=== PATIENT | male | born 1990 | race Caucasian/White ===

== ENCOUNTER 2019-02-18 22:52 | Emergency (ER) | payer OTHER ==
[2019-02-18 23:06] VITALS: TEMP 98.6
[2019-02-18] MEDS ORDERED: KETOROLAC 30 MG/ML 1 ML VIAL IVP STA (23:16)
[2019-02-18] MEDS ORDERED: methylPREDNISolone SOD SUCCI 125 MG/2 ML VIAL IV STA (23:16)
--- NOTE | 2019-02-18 23:40 | ED ---
General Adult HPI - General Source: patient, family Mode of arrival: wheelchair Limitations: physical limitation <Sheri Saul - Last Filed: 02/19/19 01:39> <Afia Booth - Last Filed: 02/19/19 01:54> - General Chief complaint: Extremity Injury, Lower Stated complaint: Lt foot pain/injury Time Seen by Provider: 02/18/19 23:09 - History of Present Illness Initial comments: 28-year-old male patient presents to the emergency department for evaluation of left foot pain. Patient states the pain started when he woke this morning has progressively worsened throughout the day. Patient states he is now unable to bear weight or walk due to the pain. Patient denies any swelling or redness. States she does have a history of gout and is concerned he may be having a flareup. He denies any known injury. Patient states he did return today from a road trip from [place]. Denies any swelling, calf pain, or calf tenderness. Denies any history of DVT. Denies any chest pain or shortness of breath. De nies any fever or chills. Denies any numbness or tingling to the foot. Patient denies any recent rash, abdominal pain, nausea, vomiting, diarrhea, constipation, back pain, numbness, tingling, dizziness, weakness, hematuria, dysuria, urinary urgency, urinary frequency, headache, visual changes, or any other complaints. (Sheri Saul) - Related Data Home Medications Medication Instructions Recorded Confirmed Atorvastatin [Lipitor] 20 mg PO DAILY 07/24/18 07/27/18 Cholecalciferol [Vitamin D3] 1,000 unit PO DAILY 07/24/18 07/27/18 Fenofibrate 120 mg PO DAILY 07/24/18 07/27/18 Gemfibrozil [Lopid] 600 mg PO DAILY 07/24/18 07/27/18 [place]-3 Fatty Acids/Fish Oil [Fish 1 each PO DAILY 07/24/18 07/27/18 Oil 1,000 mg Softgel] Previous Rx's Medication Instructions Recorded Indomethacin [Indocin] 50 mg PO TID #15 capsule 02/19/19 Allergies Allergy/AdvReac Type Severity Reaction Status Date / Time No Known Allergies Allergy Verified 02/18/19 23:06 Review of Systems ROS Other: All systems not noted in ROS Statement are negative. <Sheri Saul M - Last Filed: 02/19/19 01:39> ROS Other: All systems not noted in ROS Statement are negative. <Afia Booth Ann Marie - Last Filed: 02/19/19 01:54> ROS Statement: Those systems with pertinent positive or pertinent negative responses have been documented in the HPI. Past Medical History Past Medical History: Hyperlipidemia Additional Past Medical History / Comment(s): occ. rectal bleeding History of Any Multi-Drug Resistant Organisms: None Reported Additional Past Surgical History / Comment(s): eye surgery Past Anesthesia/Blood Transfusion Reactions: No Reported Reaction Past Psychological History: No Psychological Hx Reported Smoking Status: Never smoker Past Alcohol Use History: None Reported Past Drug Use History: None Reported - Past Family History Mother Family Medical History: No Reported History <Sheri Saul M - Last Filed: 02/19/19 01:39> General Exam Limitations: physical limitation General appearance: alert, in no apparent distress, other (Physical well- developed, well-nourished adult male patient in no acute distress. Vital signs upon presentation are temperature 98.6F, pulse 95, respirations 18, blood pressure 137/92, pulse ox 98% on room air.) Eye exam: Present: normal appearance, PERRL, EOMI. Absent: scleral icterus, conjunctival injection, periorbital swelling ENT exam: Present: normal exam, normal oropharynx, mucous membranes moist Respiratory exam: Present: normal lung sounds bilaterally. Absent: respiratory distress, wheezes, rales, rhonchi, stridor Cardiovascular Exam: Present: regular rate, normal rhythm, normal heart sounds. Absent: systolic murmur, diastolic murmur, rubs, gallop, clicks Extremities exam: Present: normal inspection, full ROM, tenderness (Generalized left foot tenderness), normal capillary refill, other (Skin to the left foot is pink, warm, and dry. Cap refills less than 3 seconds. Pedal and posttibial pulses are 2+ and equal bilaterally.). Absent: pedal edema, joint swelling, calf tenderness Neurological exam: Present: alert, oriented X3, CN II-XII intact Psychiatric exam: Present: normal affect, normal mood Skin exam: Present: warm, dry, intact, normal color. Absent: rash <Sheri Saul - Last Filed: 02/19/19 01:39> Course Vital Signs 02/18/19 02/19/19 02/19/19 23:01 00:16 01:15 Temperature 98.6 F Pulse Rate 95 86 88 Respiratory 18 16 16 Rate Blood Pressure 137/92 135/87 146/86 O2 Sat by Pulse 98 95 95 Oximetry Medical Decision Making - Lab Data Result diagrams: 02/18/19 23:40 02/18/19 23:40 - Radiology Data Radiology results: report reviewed <Sheri Saul - Last Filed: 02/19/19 01:39> - Lab Data Result diagrams: 02/18/19 23:40 02/18/19 23:40 <Afia Booth - Last Filed: 02/19/19 01:54> - Medical Decision Making 28-year-old male patient presents to the emergency department today for evaluation of left foot pain and swelling. Physical examination did reveal tenderness surrounding the entirety of the left foot. There is mild nonpitting edema noted to the left lower extremity. Neurovascular status is and did show elevated white blood cell count at 15.9. CRP elevated at 58. Uric acid is normal. D-dimer was elevated at 3.03. Ultrasound of the left lower trauma he was obtained and showed negative for DVT. Patient is not having any chest pain, shortness of breath, vital signs are stable, do not feel CT angiography of the chest is necessary at this time. Patient symptoms are consistent with gout. The patient has had this before. He'll be given prescription for indomethacin. He is instructed to keep the foot elevated. Instructed to follow-up with his primary care physician for recheck in 1-2 days. Return parameters were discussed in detail. He verbalizes understanding and agrees with this plan. (Sheri Saul) I was available for consultation in the emergency department. The history and physical exam were done by the midlevel provider. I was consulted for this patient's care. I reviewed the case with the midlevel provider and based on their presentation of the patient, I agree with the assessment, medical decision making and plan of care as documented. Chart was dictated using [employer] dictation software. Attempts were made to correct any dictation errors however some typographical errors may persist. (Afia Booth) - Lab Data Lab Results 02/18/19 02/18/19 02/18/19 Range/Units 23:40 23:40 23:40 WBC 15.9 H (3.8-10.6) k/uL RBC 5.28 (4.30-5.90) m/uL Hgb 14.3 (13.0-17.5) gm/dL Hct 41.8 (39.0-53.0) % MCV 79.2 L (80.0-100.0) fL MCH 27.2 (25.0-35.0) pg MCHC 34.3 (31.0-37.0) g/dL RDW 14.4 (11.5-15.5) % Plt Count 297 (150-450) k/uL Neutrophils % 79 % Lymphocytes % 13 % Monocytes % 4 % Eosinophils % 2 % Basophils % 1 % Neutrophils # 12.6 H (1.3-7.7) k/uL Lymphocytes # 2.1 (1.0-4.8) k/uL Monocytes # 0.7 (0-1.0) k/uL Eosinophils # 0.3 (0-0.7) k/uL Basophils # 0.1 (0-0.2) k/uL D-Dimer 3.03 H (<0.60) mg/L FEU Sodium 139 (137-145) mmol/L Potassium 4.5 (3.5-5.1) mmol/L Chloride 106 (98-107) mmol/L Carbon Dioxide 24 (22-30) mmol/L Anion Gap 9 mmol/L BUN 15 (9-20) mg/dL Creatinine 0.91 (0.66-1.25) mg/dL Est GFR (CKD-EPI)AfAm >90 (>60 ml/min/1.73 sqM) Est GFR (CKD-EPI)NonAf >90 (>60 ml/min/1.73 sqM) Glucose 123 H (74-99) mg/dL Plasma Lactic Acid Bobby (0.7-2.0) mmol/L Uric Acid 6.7 (3.5-8.5) mg/dL Calcium 9.7 (8.4-10.2) mg/dL Total Bilirubin 0.5 (0.2-1.3) mg/dL AST 23 (17-59) U/L ALT 28 (21-72) U/L Alkaline Phosphatase 90 (38-126) U/L C-Reactive Protein 58.0 H (<10.0) mg/L Total Protein 7.6 (6.3-8.2) g/dL Albumin 4.4 (3.5-5.0) g/dL 02/18/19 Range/Units 23:40 WBC (3.8-10.6) k/uL RBC (4.30-5.90) m/uL Hgb (13.0-17.5) gm/dL Hct (39.0-53.0) % MCV (80.0-100.0) fL MCH (25.0-35.0) pg MCHC (31.0-37.0) g/dL RDW (11.5-15.5) % Plt Count (150-450) k/uL Neutrophils % % Lymphocytes % % Monocytes % % Eosinophils % % Basophils % % Neutrophils # (1.3-7.7) k/uL Lymphocytes # (1.0-4.8) k/uL Monocytes # (0-1.0) k/uL Eosinophils # (0-0.7) k/uL Basophils # (0-0.2) k/uL D-Dimer (<0.60) mg/L FEU Sodium (137-145) mmol/L Potassium (3.5-5.1) mmol/L Chloride (98-107) mmol/L Carbon Dioxide (22-30) mmol/L Anion Gap mmol/L BUN (9-20) mg/dL Creatinine (0.66-1.25) mg/dL Est GFR (CKD-EPI)AfAm (>60 ml/min/1.73 sqM) Est GFR (CKD-EPI)NonAf (>60 ml/min/1.73 sqM) Glucose (74-99) mg/dL Plasma Lactic Acid Bobby 1.3 (0.7-2.0) mmol/L Uric Acid (3.5-8.5) mg/dL Calcium (8.4-10.2) mg/dL Total Bilirubin (0.2-1.3) mg/dL AST (17-59) U/L ALT (21-72) U/L Alkaline Phosphatase (38-126) U/L C-Reactive Protein (<10.0) mg/L Total Protein (6.3-8.2) g/dL Albumin (3.5-5.0) g/dL - Radiology Data 3 views of the left foot are obtained. Report was reviewed in its entirety. Impression by Dr. Stevens shows no acute findings. Ultrasound of the left lower external he was obtained. Report was reviewed in i ts entirety. Impression by Dr. Randolph shows no DVT. (Sheri Saul) Disposition Is patient prescribed a controlled substance at d/c from ED?: No Time of Disposition: 01:38 <Sheri Saul - Last Filed: 02/19/19 01:39> <Afia Booth - Last Filed: 02/19/19 01:54> Clinical Impression: Gout attack Disposition: HOME SELF-CARE Condition: Good Instructions (If sedation given, give patient instructions): Gout (ED) Additional Instructions: Take medications as directed. Once pain is improved stopped taking the prescription medication. Follow-up through primary care physician for recheck in 1-2 days. Return to the emergency department immediately for any new, worsening, or concerning symptoms. Prescriptions: Indomethacin [Indocin] 50 mg PO TID #15 capsule Referrals: Mauro Rivers MD [Primary Care Provider] - 1-2 days
--- NOTE | 2019-02-18 23:43 | XR ---
EXAM: XR Left Foot Complete, 3 or More Views CLINICAL HISTORY: ITS.REASON XR Reason: Pain TECHNIQUE: Frontal, lateral and oblique views of the left foot. COMPARISON: No relevant prior studies available. FINDINGS: Bones/joints: No acute fracture. No dislocation. Small calcaneal enthesophyte. Soft tissues: Unremarkable. No radiopaque foreign body. IMPRESSION: No acute findings.
[2019-02-18 23:51] LABS: Basophils # (A) 0.1 k/uL (0-0.2); Basophils % (A) 1 %; Eosinophils # (A) 0.3 k/uL (0-0.7); Eosinophils % (A) 2 %; HCT 41.8 % (39.0-53.0); HGB 14.3 gm/dL (13.0-17.5); Lymphocytes # (A) 2.1 k/uL (1.0-4.8); Lymphocytes % (A) 13 %; MCH 27.2 pg (25.0-35.0); MCHC 34.3 g/dL (31.0-37.0); MCV 79.2 fL (80.0-100.0); Monocytes # (A) 0.7 k/uL (0-1.0); Monocytes % (A) 4 %; Neutrophils # (A) 12.6 k/uL (1.3-7.7); Neutrophils % (A) 79 %; Platelet Count 297 k/uL (150-450); RBC 5.28 m/uL (4.30-5.90); RDW 14.4 % (11.5-15.5); WBC 15.9 k/uL (3.8-10.6)
[2019-02-19 00:03] LABS: ALT 28 U/L (21-72); AST 23 U/L (17-59); African American GFR (CKD) >90 (>60 ml/min/1.73 sqM); Albumin 4.4 g/dL (3.5-5.0); Alkaline Phosphatase 90 U/L (38-126); Anion Gap 9 mmol/L; Blood Urea Nitrogen 15 mg/dL (9-20); Calcium 9.7 mg/dL (8.4-10.2); Carbon Dioxide 24 mmol/L (22-30); Chloride 106 mmol/L (98-107); Glucose 123 mg/dL (74-99); Potassium 4.5 mmol/L (3.5-5.1); Sodium 139 mmol/L (137-145); Total Bilirubin 0.5 mg/dL (0.2-1.3); Total Protein 7.6 g/dL (6.3-8.2); Uric Acid 6.7 mg/dL (3.5-8.5)
[2019-02-19 00:17] VITALS: RESP 16
[2019-02-19 01:17] VITALS: BP 146/86
[2019-02-19] MEDS ORDERED: MORPHINE SULFATE 4 MG/ML SYRINGE IVP STA (01:17)
[2019-02-19] MEDS ORDERED: ONDANSETRON 4 MG/2 ML VIAL IVP STA (01:17)
--- NOTE | 2019-02-19 01:28 | US ---
EXAM: US Left Lower Extremity, venous CLINICAL HISTORY: ITS.REASON US Reason: Pain TECHNIQUE: Real-time ultrasound scan of the left lower extremity deep venous system with image documentation. COMPARISON: No relevant prior studies available. FINDINGS: No DVT. No solid masses or adenopathy. No abscess. No foreign body. IMPRESSION: No DVT.
[2019-02-19] MEDS ORDERED: ACET/COD 300 MG/30 MG STARTER PACK 6 TAB BTL PO STA (01:35)
[2019-02-19] MEDS ORDERED: IBUPROFEN 600 MG STARTER PACK 4 TAB BTL PO STA (01:35)
[2019-02-19 02:30] VITALS: PULSE 92
== END 2019-02-19 02:30 | disposition home or self-care (01) ==
LOC: EC 22:52
DX: M10.072 Idiopathic gout, left ankle and foot (principal); E78.5 Hyperlipidemia, unspecified; Z79.899 Other long term (current) drug therapy
CPT/HCPCS: 36415; 85379; 80053; 83605; 84550; 85025; 86140; 73630; 93971; 99284; 96374; 96375 ×3; J2270; J2930; J2405; J1885